=== PATIENT | male | born 1950 | race Caucasian/White ===

== ENCOUNTER 2021-02-08 15:23 | Inpatient (IN) | payer MEDICARE ==
[2021-02-08 19:26] VITALS: BMI 37.7
[2021-02-08] MEDS ORDERED: Acetaminophen 650 MG Suppository PR PRN (20:13)
[2021-02-08] MEDS ORDERED: Senokot S 8.6-50 MG TAB PO PRN (20:13)
[2021-02-08] MEDS ORDERED: Ondansetron ODT 4 MG TAB PO PRN (20:13)
[2021-02-08] MEDS ORDERED: Ondansetron PF 4 MG/2 ML Vial IVP PRN (20:13)
[2021-02-08] MEDS ORDERED: Bisacodyl 5 MG TAB PO PRN (20:13)
[2021-02-08 20:53] LABS: Lactic Acid 1.3 mmol/L (0.5-2.2)
[2021-02-08 20:58] LABS: Anion Gap 15 mmol/L (10-20); BUN (Urea Nitrogen) 9 mg/dL (8.4-25.7); Calc. Creatinine Clearance 129 mL/min (70-130); Calcium 8.5 mg/dL (7.8-10.44); Carbon Dioxide 22 mmol/L (23-31); Cardiac Risk 2.6 (Less than 4.5); Chloride 101 mmol/L (98-107); Cholesterol 127 mg/dl (< 200 Desired); Glucose 90 mg/dL (80-115); HDL Cholesterol 49 mg/dL (>60 Neg Risk); LDL Cholesterol, Calculated 70 mg/dL; Potassium 4.1 mmol/L (3.5-5.1); Sodium 134 mmol/L (136-145); Triglycerides 42 mg/dL (Less than 150)
[2021-02-08] MEDS: Famotidine/PF 20 mg/2ml Vial SLOW IVP SCH (21:11)
[2021-02-08] MEDS: Sodium Chloride 0.9% 1,000 ML IV SCH (21:11)
[2021-02-08] MEDS: Famotidine 20 MG TAB PO SCH (21:11)
[2021-02-09 01:27] LABS: SARS-CoV-2 PCR by NAA Not Detected (NotDetected)
[2021-02-09] MEDS: Acetaminophen 325 MG TAB PO PRN ×4 (02:02→20:56)
[2021-02-09] MEDS: Sodium Chloride 0.9% 1,000 ML IV SCH ×4 (02:02→15:09)
[2021-02-09 07:12] LABS: Hemoglobin 13.8 g/dL (14.0-18.0); Red Blood Cell (RBC) Count 4.74 mill/uL (4.70-6.10); White Blood Cell (WBC) Count 19.6 thou/uL (4.8-10.8)
[2021-02-09 07:13] LABS: #Lymphocytes 1.4 thou/uL (1.20-3.40); #Monocytes 1.6 thou/uL (0.11-0.59); #Neutrophils 16.7 thou/uL (1.40-6.50); %Basophils 0.2 % (0.0-1.0); %Eosinophils 0.2 % (0.0-10.0); %Lymphocytes 6.9 % (21.0-51.0); %Monocytes 7.9 % (0.0-10.0); %Neutrophils 84.9 % (42.0-75.0); Mean Corpuscular HGB CONC 31.9 g/dL (32.0-36.0); Mean Platelet Volume 8.6 fL (7.4-10.4); Platelet Count 239 thou/uL (130-400); RBC Distribution Width 11.7 % (11.5-14.5)
[2021-02-09 07:30] LABS: ALT (SGPT) 33 U/L (8-55); AST (SGOT) 22 U/L (5-34); Albumin 3.5 g/dL (3.4-4.8); Alkaline Phosphatase 71 U/L (40-110); Anion Gap 14 mmol/L (10-20); BUN (Urea Nitrogen) 10 mg/dL (8.4-25.7); Bilirubin, Total 0.5 mg/dL (0.2-1.2); Calc. Creatinine Clearance 138 mL/min (70-130); Calcium 8.6 mg/dL (7.8-10.44); Carbon Dioxide 24 mmol/L (23-31); Chloride 103 mmol/L (98-107); Globulin 3.2 g/dL (2.4-3.5); Glucose 107 mg/dL (80-115); Lipase 74 U/L (8-78); Protein, Total 6.7 g/dL (5.8-8.1); Sodium 137 mmol/L (136-145)
[2021-02-09] MEDS: Lisinopril 20 MG TAB PO SCH (07:45)
[2021-02-09] MEDS: Famotidine/PF 20 mg/2ml Vial SLOW IVP SCH ×2 (07:46→20:56)
[2021-02-09] MEDS: Enoxaparin Sodium 40 MG/0.4 ML SYRINGE SC SCH (07:46)
[2021-02-09] MEDS: Famotidine 20 MG TAB PO SCH ×2 (07:47→20:56)
[2021-02-09] MEDS ORDERED: Morphine 4 MG/ML VIAL SLOW IVP PRN ×2 (14:50→14:52)
[2021-02-09] MEDS ORDERED: HYDROcodone/Acetaminophen 5/325 mg Tablet PO PRN (15:03)
[2021-02-09] MEDS: Amlodipine 10 MG TAB PO SCH (20:56)
[2021-02-10] MEDS: Sodium Chloride 0.9% 1,000 ML IV SCH ×2 (05:33→13:20)
[2021-02-10 06:23] LABS: #Eosinphils 0.3 thou/uL (0.0-0.7); #Lymphocytes 1.4 thou/uL (1.20-3.40); #Monocytes 1.3 thou/uL (0.11-0.59); %Basophils 0.2 % (0.0-1.0); %Eosinophils 1.8 % (0.0-10.0); %Lymphocytes 8.8 % (21.0-51.0); %Monocytes 8.2 % (0.0-10.0); Hemoglobin 13.4 g/dL (14.0-18.0); Mean Corpuscular HGB CONC 33.1 g/dL (32.0-36.0); Mean Corpuscular Hemoglobin 30.4 pg (27.0-31.0); Mean Corpuscular Volume 91.9 fL (78.0-98.0); Mean Platelet Volume 8.5 fL (7.4-10.4); Platelet Count 256 thou/uL (130-400); RBC Distribution Width 11.6 % (11.5-14.5); Red Blood Cell (RBC) Count 4.41 mill/uL (4.70-6.10); White Blood Cell (WBC) Count 16.1 thou/uL (4.8-10.8)
[2021-02-10 07:45] LABS: ALT (SGPT) 26 U/L (8-55); AST (SGOT) 21 U/L (5-34); Albumin 3.4 g/dL (3.4-4.8); Alkaline Phosphatase 71 U/L (40-110); Anion Gap 14 mmol/L (10-20); BUN (Urea Nitrogen) 11 mg/dL (8.4-25.7); Bilirubin, Total 0.5 mg/dL (0.2-1.2); Calc. Creatinine Clearance 149 mL/min (70-130); Calcium 8.4 mg/dL (7.8-10.44); Carbon Dioxide 21 mmol/L (23-31); Chloride 102 mmol/L (98-107); Globulin 3.2 g/dL (2.4-3.5); Glucose 103 mg/dL (80-115); Lipase 53 U/L (8-78); Protein, Total 6.6 g/dL (5.8-8.1); Sodium 133 mmol/L (136-145)
[2021-02-10] MEDS: Famotidine/PF 20 mg/2ml Vial SLOW IVP SCH ×2 (09:25→21:33)
[2021-02-10] MEDS: Lisinopril 20 MG TAB PO SCH (09:28)
[2021-02-10] MEDS: Famotidine 20 MG TAB PO SCH ×2 (09:28→21:31)
[2021-02-10] MEDS: Enoxaparin Sodium 40 MG/0.4 ML SYRINGE SC SCH (09:28)
[2021-02-10] MEDS: Amlodipine 10 MG TAB PO SCH (21:32)
[2021-02-11] MEDS: Sodium Chloride 0.9% 1,000 ML IV SCH (02:20)
[2021-02-11 06:52] LABS: #Basophils 0.1 thou/uL (0.0-0.2); #Eosinphils 0.4 thou/uL (0.0-0.7); #Lymphocytes 1.7 thou/uL (1.20-3.40); #Monocytes 1.1 thou/uL (0.11-0.59); #Neutrophils 9.5 thou/uL (1.40-6.50); %Basophils 0.6 % (0.0-1.0); %Eosinophils 3.4 % (0.0-10.0); %Lymphocytes 13.4 % (21.0-51.0); %Monocytes 8.7 % (0.0-10.0); %Neutrophils 73.9 % (42.0-75.0); Hemoglobin 14.2 g/dL (14.0-18.0); Mean Corpuscular HGB CONC 32.7 g/dL (32.0-36.0); Mean Corpuscular Volume 91.8 fL (78.0-98.0); Mean Platelet Volume 8.2 fL (7.4-10.4); Platelet Count 251 thou/uL (130-400); RBC Distribution Width 11.6 % (11.5-14.5); Red Blood Cell (RBC) Count 4.74 mill/uL (4.70-6.10); White Blood Cell (WBC) Count 12.8 thou/uL (4.8-10.8)
[2021-02-11 07:12] LABS: Anion Gap 14 mmol/L (10-20); BUN (Urea Nitrogen) 12 mg/dL (8.4-25.7); Calc. Creatinine Clearance 157 mL/min (70-130); Calcium 8.6 mg/dL (7.8-10.44); Carbon Dioxide 21 mmol/L (23-31); Chloride 104 mmol/L (98-107); Glucose 101 mg/dL (80-115); Sodium 135 mmol/L (136-145)
[2021-02-11] MEDS: Lisinopril 20 MG TAB PO SCH (08:25)
[2021-02-11] MEDS: Famotidine 20 MG TAB PO SCH (08:25)
[2021-02-11] MEDS: Enoxaparin Sodium 40 MG/0.4 ML SYRINGE SC SCH (08:26)
[2021-02-11] MEDS: Famotidine/PF 20 mg/2ml Vial SLOW IVP SCH (08:26)
[2021-02-11 11:56] VITALS: BP 153/80; TEMP 98.2
== END 2021-02-11 16:32 | disposition home or self-care (01) | DRG 439 ==
LOC: T4-B 15:23
PROVIDERS: ADMIT Hospitalist; ATTEND Internal Medicine
DX: K85.90 Acute pancreatitis without necrosis or infection, unspecified (principal); R65.10 Systemic inflammatory response syndrome (SIRS) of non-infectious origin without acute organ dysfunction; E87.1 Hypo-osmolality and hyponatremia; J44.9 Chronic obstructive pulmonary disease, unspecified; I10 Essential (primary) hypertension; Z20.822 Contact with and (suspected) exposure to COVID-19; E66.9 Obesity, unspecified; I49.3 Ventricular premature depolarization; K76.0 Fatty (change of) liver, not elsewhere classified; K59.00 Constipation, unspecified; Z68.37 Body mass index [BMI] 37.0-37.9, adult; Z87.891 Personal history of nicotine dependence; Z79.899 Other long term (current) drug therapy; Z87.19 Personal history of other diseases of the digestive system; Z98.890 Other specified postprocedural states
CPT/HCPCS: 36415; 71045; 76705; 80048; 80053; 80061; 83605; 83690; 85025; 87635; J1650; J2270; J2405; S0028; U0003; U0005